=== PATIENT | male | born 1985 | race Caucasian/White ===

== ENCOUNTER 2017-04-02 19:07 | Emergency (ER) | payer BC ==
[~2017-04-02 19:07] MED LIST: ANUSOL HC25 MG/SUP1 PR; BENTYL10 MG PO; MULTIVITAMIN1 TAB PO; NEXIUM20 MG PO; VITAMIN C100 MG PO
[2017-04-02 20:26] LABS: ALB/GLOB RATIO 0.9 (0.8-2.0); ALBUMIN 3.7 g/dl (3.5-5.0); ALKALINE PHOSPHATASE 56 U/L (33-138); ALT/SGPT 111 U/L (12-78); ANION GAP 14 mmol/L (0-20); AST/SGOT 49 U/L (10-40); BILIRUBIN,TOTAL 0.3 mg/dl (0.0-1.5); BLOOD UREA NITROGEN 11 mg/dl (6-24); CALCIUM 9.2 mg/dl (8.5-10.5); CARBON DIOXIDE-VENOUS 21 mmol/L (22-32); CHLORIDE 109 mmol/l (96-110); CREATININE 1.01 mg/dl (0.60-1.30); GLUCOSE 105 mg/dL (70-110); LIPASE 338 U/L (73-393); POTASSIUM 3.7 mmol/L (3.7-5.1); SODIUM 140 mmol/L (135-145); eGFR VALUE FOR BLACK >90 mL/Min
[2017-04-02 20:35] LABS: BASO % 0.9 % (0-2); BASO ABSOLUTE COUNT 0.1 tho/cmm (0.0-0.2); EOS % 1.2 % (0-7); EOSINOPHIL ABSOLUTE COUNT 0.1 tho/cmm (0.0-0.7); HCT-HEMATOCRIT 41.7 % (36.0-53.5); HGB-HEMOGLOBIN 15.2 gm/dl (13.5-17.0); IMMATURE GRANULOCYTES ABSOLUTE 0.02 tho/cmm (0-0.03); IMMATURE GRANULOCYTES PERCENT 0.3 % (0-0.3); LYMPH % 46.6 % (20-45); LYMPH ABSOLUTE COUNT 3.5 tho/cmm (0.8-4.5); MCH (MEAN CORPUSCULAR HGB) 31.9 pg (28.0-32.0); MCHC MEAN CORPUSCULAR HGB CONC 36.5 % (32.0-36.0); MCV (MEAN CELL VOLUME) 87.6 fl (82.0-96.0); MEAN PLATELET VOLUME 9.9 cmc (9.4-12.4); MONO % 9.3 % (0-12); MONOCYTE ABSOLUTE COUNT 0.7 tho/cmm (0.0-1.2); NEUTROPHIL ABSOLUTE COUNT 3.1 tho/cmm (1.6-8.0); NEUTROPHIL-AUTOMATED 3.1 tho/cmm (1.6-8.0); NEUTROPHILS % 41.7 % (40-80); PLATELET COUNT 249 tho/cmm (150-450); RED BLOOD COUNT 4.76 mil/cmm (4.40-5.70); RED CELL DISTRIBUTION WIDTH 12.8 % (12.4-16.4); WHITE BLOOD COUNT 7.5 tho/cmm (4.0-10.0)
[2017-04-02] MEDS ORDERED: NORCO 5/3251 TAB PO (22:36)
[2017-04-02] MEDS ORDERED: PROMETHAZINE HC25 M3 PO (22:36)
[2017-04-02] MEDS ORDERED: PROTONIX40 M2 PO (22:36)
[2017-05-21] MEDS ORDERED: KLONOPIN1 M1 PO (18:44)
[2017-05-21] MEDS ORDERED: LEVSIN0.125 M1 PO (18:44)
[2017-05-21] MEDS ORDERED: DEPAKOTE250 M1 PO (18:44)
[2017-05-21] MEDS ORDERED: PAXIL (18:44)
[2017-05-21] MEDS ORDERED: COMPAZINE10 MG PO (23:24)
== END 2017-04-02 22:50 ==
LOC: EDMED 19:07
PROVIDERS: Emergency Medicine
DX: R10.84 Generalized abdominal pain (principal); R11.2 Nausea with vomiting, unspecified; F31.9 Bipolar disorder, unspecified; F20.9 Schizophrenia, unspecified; Z90.49 Acquired absence of other specified parts of digestive tract
CPT/HCPCS: C9113; J1170; J2405; J7030; Q9967